=== PATIENT | male | born 2000 | race Caucasian/White ===

== ENCOUNTER 2022-10-01 19:01 | Emergency (ER) | payer BC ==
[2022-10-01 19:31] LABS: APPEARANCE,URINE CLEAR (Clear); BILIRUBIN,URINE NEGATIVE (Negative); COLOR,URINE YELLOW (Yellow); GLUCOSE,URINE NEGATIVE (Negative); KETONES,URINE NEGATIVE (Negative); LEUKOCYTE ESTERASE,URINE NEGATIVE (Negative); NITRITE,URINE NEGATIVE (Negative); OCCULT BLOOD,URINE NEGATIVE (Negative); PROTEIN,URINE NEGATIVE (Negative); UROBILINOGEN,URINE 0.2 (0.2-1.0)
[2022-10-01 19:32] LABS: BASOPHILS ABSOLUTE AUTO 0.02 K/mm3 (0.01-0.08); BASOPHILS PERCENT AUTO 0.3 % (0.1-1.2); EOSINOPHILS ABSOLUTE AUTO 0.07 K/mm3 (0.04-0.54); EOSINOPHILS PERCENT AUTO 0.9 (0.8-7.0); HEMATOCRIT 44.5 % (40.1-51.0); HEMOGLOBIN 14.9 gm/dl (13.7-17.5); LYMPHOCYTES ABSOLUTE AUTO 1.72 K/mm3 (1.32-3.57); LYMPHOCYTES PERCENT AUTO 23.2 % (21.8-53.1); MEAN CORPUSCULAR HEMOGLOBIN 29.9 pg (25.7-32.2); MEAN CORPUSCULAR HGB CONC 33.5 g/dl (32.2-35.5); MEAN CORPUSCULAR VOLUME 89.2 fl (79.0-92.2); MEAN PLATELET VOLUME 9.7 fl (9.4-12.3); MONOCYTES ABSOLUTE AUTO 1.29 K/mm3 (0.30-0.82); MONOCYTES PERCENT AUTO 17.4 % (5.3-12.2); NEUTROPHILS ABSOLUTE AUTO 4.32 K/mm3 (1.78-5.38); NEUTROPHILS PERCENT AUTO 58.2 % (34.0-67.9); PLATELET COUNT,PLT 171 K/mm3 (163-337); RED BLOOD CELL COUNT 4.99 M/mm3 (4.63-6.08); WHITE BLOOD CELL COUNT,WBC 7.42 K/mm3 (4.23-9.07)
[2022-10-01 19:39] LABS: BACTERIA,URINE FEW /hpf (FEW); RBC,URINE 0-5 /hpf (0-5); SQUAMOUS EPITHELIAL CELLS,UR 0-5 /hpf (0-5); WBC,URINE 0-5 /hpf (0-5)
[2022-10-01 19:40] LABS: MUCUS,URINE NOT SEEN /hpf (FEW)
[2022-10-01 19:51] LABS: ALBUMIN 3.5 g/dl (3.4-5.0); BILIRUBIN TOTAL 0.2 mg/dL (0.2-1.0); BUN/CREATININE RATIO 12.7 (14-18); CALCIUM 8.7 mg/dL (8.5-10.1); CREATININE 1.1 mg/dL (0.7-1.3); EST CRCL DRUG DOSING (CG) 123.51 mL/min
[2022-10-01] MEDS ORDERED: Iopamidol 612 MG/ML 100 ML Bottle IVPUSH ONE (20:49)
== END 2022-10-02 01:20 | disposition home or self-care (01) ==
LOC: JD.ED 19:01
DX: R10.13 Epigastric pain (principal); M54.6 Pain in thoracic spine; R59.0 Localized enlarged lymph nodes; Z91.018 Allergy to other foods
CPT/HCPCS: 36415; 71045; 74177; 80053; 81001; 83605; 83690; 85025; 93005; 99284; Q9967; 93010

== ENCOUNTER 2022-10-25 09:30 | Emergency (ER) | payer BC ==
[2022-10-25] MEDS ORDERED: Sodium Chloride 0.9% 10 ML Syringe FLUSH PRN (10:02)
[2022-10-25] MEDS ORDERED: Iopamidol 612 MG/ML 100 ML Bottle IVPUSH ONE (10:07)
[2022-10-25] MEDS ORDERED: Iopamidol 612 MG/ML 30 ML SDV IVPUSH ONE (10:07)
[2022-10-25] MEDS ORDERED: Sodium Chloride 0.9% 1,000 ML IV SCH (10:15)
[2022-10-25 10:50] LABS: BASOPHILS ABSOLUTE AUTO 0.02 K/mm3 (0.01-0.08); BASOPHILS PERCENT AUTO 0.1 % (0.1-1.2); EOSINOPHILS ABSOLUTE AUTO 0.09 K/mm3 (0.04-0.54); EOSINOPHILS PERCENT AUTO 0.6 (0.8-7.0); HEMATOCRIT 44.5 % (40.1-51.0); IMMATURE GRAN ABSOLUTE AUTO 0.04 K/mm3 (0.00-0.10); IMMATURE GRAN PERCENT AUTO 0.3 % (<=1.0); LYMPHOCYTES ABSOLUTE AUTO 1.13 K/mm3 (1.32-3.57); LYMPHOCYTES PERCENT AUTO 7.2 % (21.8-53.1); MEAN CORPUSCULAR HEMOGLOBIN 29.5 pg (25.7-32.2); MEAN CORPUSCULAR HGB CONC 33.7 g/dl (32.2-35.5); MEAN CORPUSCULAR VOLUME 87.6 fl (79.0-92.2); MEAN PLATELET VOLUME 9.2 fl (9.4-12.3); MONOCYTES ABSOLUTE AUTO 1.58 K/mm3 (0.30-0.82); MONOCYTES PERCENT AUTO 10.1 % (5.3-12.2); NEUTROPHILS ABSOLUTE AUTO 12.84 K/mm3 (1.78-5.38); NEUTROPHILS PERCENT AUTO 81.7 % (34.0-67.9); PLATELET COUNT,PLT 227 K/mm3 (163-337); RED BLOOD CELL COUNT 5.08 M/mm3 (4.63-6.08)
[2022-10-25 11:13] LABS: A/G RATIO 0.7 (1-2); ALBUMIN 3.4 g/dl (3.4-5.0); ANION GAP 10.9 (5-15); CALCIUM 9.7 mg/dL (8.5-10.1); EST CRCL DRUG DOSING (CG) 139.66 mL/min; MAGNESIUM 1.9 mg/dL (1.8-2.4); POTASSIUM,K 3.9 mEq/L (3.5-5.1); PROTEIN TOTAL,TP 8.5 g/dl (6.4-8.2)
[2022-10-25 11:30] LABS: SLIDE REVIEW ABNORMAL SMEAR
[2022-10-25 11:36] LABS: C-REACTIVE PROTEIN 26.2 mg/dL (<1.0)
[2022-10-25] MEDS ORDERED: cefTRIAXone 2 GM in Sodium Chloride 0.9% 100 ML IV ONE (11:47)
[2022-10-25 11:53] LABS: APPEARANCE,URINE CLEAR (Clear); BILIRUBIN,URINE 1+ (Negative); COLOR,URINE DARK YELLOW (Yellow); GLUCOSE,URINE NEGATIVE (Negative); KETONES,URINE TRACE (Negative); LEUKOCYTE ESTERASE,URINE NEGATIVE (Negative); NITRITE,URINE NEGATIVE (Negative); OCCULT BLOOD,URINE NEGATIVE (Negative); PROTEIN,URINE 2+ (Negative); UROBILINOGEN,URINE 0.2 (0.2-1.0)
[2022-10-25 12:27] LABS: BACTERIA,URINE FEW /hpf (FEW); MUCUS,URINE FEW /hpf (FEW); RBC,URINE 0-5 /hpf (0-5); SQUAMOUS EPITHELIAL CELLS,UR 0-5 /hpf (0-5); WBC,URINE 0-5 /hpf (0-5)
[2022-10-25 13:04] LABS: CORONAVIRUS COVID-19 NAA NEGATIVE (NEGATIVE); INFLUENZA A NAA NEGATIVE (NEGATIVE); RESPIRATORY SYNCYTIAL VIR NAA NEGATIVE (NEGATIVE)
[2022-10-25 13:31] LABS: LACTIC ACID 1.3 mmol/L (0.4-2.0)
== END 2022-10-25 12:55 | disposition left against medical advice (07) ==
LOC: JD.ED 09:30
DX: J02.0 Streptococcal pharyngitis (principal); R59.0 Localized enlarged lymph nodes; F17.210 Nicotine dependence, cigarettes, uncomplicated; Z91.018 Allergy to other foods; Z20.822 Contact with and (suspected) exposure to COVID-19
CPT/HCPCS: 0241U; 36415; 70491; 71260; 74177; 80053; 81001; 83605; 83690; 83735; 85025; 86140; 86308; 87040; 87651; 96360; 99284; J3490; J7030; Q9967

== ENCOUNTER 2023-05-24 12:46 | Emergency (ER) | payer BC ==
[2023-05-24] MEDS ORDERED: Cyclobenzaprine 10 MG Tab PO ONE (13:17)
[2023-05-24] MEDS ORDERED: HYDROmorphone 1 MG/ML Syringe IM ONE (13:17)
[2023-05-24] MEDS ORDERED: Ketorolac 60 MG/2 ML SDV IM ONE (13:17)
== END 2023-05-24 15:00 | disposition home or self-care (01) ==
LOC: JD.ED 12:46
DX: M54.50 Low back pain, unspecified (principal); Z91.018 Allergy to other foods; W10.8XXA Fall (on) (from) other stairs and steps, initial encounter
CPT/HCPCS: 71046; 72100; 96372; 99283; A9270; J1170; J1885

== ENCOUNTER 2025-04-10 08:28 | Emergency (ER) | payer BC | END 2025-04-10 10:41 | disposition home or self-care (01) | LOC: JD.ED 08:28 | DX: S93.402A Sprain of unspecified ligament of left ankle, initial encounter (principal); S82.891K Other fracture of right lower leg, subsequent encounter for closed fracture with nonunion; Z79.899 Other long term (current) drug therapy; Z91.018 Allergy to other foods; X50.1XXA Overexertion from prolonged static or awkward postures, initial encounter; Y92.009 Unspecified place in unspecified non-institutional (private) residence as the place of occurrence of the external cause | CPT/HCPCS: 29515; 73610-26-LT; 73610-LT; 99283-25 ==